=== PATIENT | female | born 1985 | race Caucasian/White ===

== ENCOUNTER 2019-03-30 13:29 | Outpatient (CLI) | payer MEDICAID, SELFPAY ==
[2019-03-30 13:51] VITALS: BMI 42.5
[2019-03-30 14:34] LABS: Fetal Fibronectin Negative
[2019-03-30 15:04] LABS: Group B Strep DNA By PCR Negative (Negative); Internal Control PASS; Probe Check PASS; Specimen Processing Control PASS
--- NOTE | 2019-03-30 15:39 | NURSING ---
Dr. Aponte contacted in office. Notified of category I strip. FFN negative. Contractions palpate mild and are irregular. Patient able to feel contractions but denies pain. Per Dr. Aponte patient may be discharged, states patient does not need a cervical exam to reassess for cervical change unless the patient requests and she will come after office hours to check patient for cervical change. Patient declines desire for cervical exam. Discharge instructions and education provided to patient.
--- NOTE | 2019-03-31 21:20 | OB.TRI.NOTE ---
History of Present Illness Date of Service: 03/30/19 Was patient seen by the physician?: No Reason For Visit: R/O PRE TERM LABOR Date of Service: 03/30/19 Final KHALIDA: 06/03/19 Gestational age: 30w 5 d Allergies No Known Allergies Allergy (Verified 03/30/19 13:55) Laboratory Studies: Laboratory Tests 03/30/19 03/30/19 Range/Units 12:45 12:45 Group B Strep DNA Negative (Negative) Fibronectin Negative Specimen Comment Not Reportable NST - FHR Rate Baby A Baseline: 135 Variability:: Moderate Accelerations:: 15 x 15 Decelerations:: None NST Reactive:: Yes FHR Category:: Category I Uterine Activity:: irritability Impression/Plan 33 YOF grand multip w/ threatened labor high risk multigravida advanced maternal age no cervical change d/c home, f/u as scheduled or as needed
== END 2019-03-30 15:30 | disposition home or self-care (01) ==
LOC: WPOUT 13:37 → OBT 13:38
PROVIDERS: Referring Provider Obstetrics & Gynecology; Visit Provider Obstetrics & Gynecology
DX: O47.03 False labor before 37 completed weeks of gestation, third trimester (principal); Z3A.34 34 weeks gestation of pregnancy
CPT/HCPCS: 59025; 59050; 82731; 87081; 87653; 99218; G0378

== ENCOUNTER 2019-05-04 09:00 | Inpatient (IN) | payer MEDICAID, SELFPAY ==
[2019-05-04 09:24] VITALS: BMI 43.2
[2019-05-04] MEDS: Lactated Ringers 1,000 ML 200 ML IV (09:30)
[2019-05-04] MEDS: Oxytocin 30 units/NS 500 ml 30 UNITS/500 ML IV.SOLN 334 UNITS IV (10:00)
--- NOTE | 2019-05-04 10:04 | PCM.HP.OB ---
- Problem List (1) Active labor Status: Acute (2) History of delivery Status: Acute (3) Late care Status: Acute (4) Family history of cystic fibrosis Status: Acute (5) Grand multipara in labor Status: Acute History Date of Admission: 05/04/19 Final KHALIDA: 06/03/19 Gestational age: 35 Weeks and 5 Days History of this : This is a 33 year-old, G [8], P [3316], at 35 weeks 5 days gestational age by LMP. Presented to labor and delivery at 8cm and in active labor with intact membranes. Contractions every 2 minutes and strong. Wanting unmedicated delivery. Allergies No Known Allergies Allergy (Verified 03/30/19 13:55) Home Medications: Home Medications Vits [Prenatabs FA] 1 tab PO DAILY 03/30/19 Smoking Status: Never smoker Alcohol: None Number of Fetus(es): 1 History Past Pregnancies: Past Pregnancies Delivery Date Name GA/ Weeks Outcome Route Wt Infant Sex Labor Length Anesthesia Delivery Location Provider FOB Labs: A positive, antibody screen negative HIV non reactive HBsAG negative Rubella Immune RPR negative GC/CT negative Urine tox screen negative GBS unknown Expected Infant Delivery Method: Spontaneous Vaginal Review of Systems Cardiovascular: Denies: Chest Pain Gastrointestinal: Reports: Abdominal Pain Genitourinary: Denies: Dysuria Psychiatric: Denies: Anxiety, Depression, Homicidal Ideations, Suicidal Ideations Physical Exam General: Alert, Oriented x3 HEENT: Atraumatic, Normocephalic Cardiovascular: Regular rate, Regular Rhythm Lungs: Clear to auscultation, Normal air movement, No rhonchi, No wheeze Abdomen: Gravid Estimated gestational size: Appropriate for gestational size Presentation: Cephalic Cervix Dilation (cm): 8 - IBOW. With patients consent AROM for large amount of clear fluild. Station: -1 Effacement (%): 90 Assessment/Plan All Active Problems Active labor (Acute) History of delivery (Acute) Late care (Acute) Family history of cystic fibrosis (Acute) Grand multipara in labor (Acute) This is a 33 year-old, G [8], P [3316], at 35 weeks 5 days gestational age. Active Labor Labor GBS unknown P: 1)Admit to labor and delivery 2)IV saline lock 3)Routine OB labs 4)Planning unmedicated 5) notified of patient in labor and collaborative physician.
--- NOTE | 2019-05-04 10:14 | PCM.OPRPT ---
Problem List (1) Active labor Status: Acute (2) History of delivery Status: Acute (3) Late care Status: Acute (4) Family history of cystic fibrosis Status: Acute (5) Grand multipara in labor Status: Acute (6) delivery Status: Acute Vaginal Delivery Maternal Presentation: Active Labor Amniotic Membrane Rupture Type: Artificial Amniotic Fluid Description: Clear Final KHALIDA: 06/03/19 Gestational age: 35 Weeks and 5 Days Date of Procedure: 05/04/19 Pre-Operative Diagnosis: Active labor Post-Operative Diagnosis: Surgery/ Procedure Performed: Spontaneous Vaginal Delivery Type of Anesthesia: None Description of Procedure: Presented to labor and delivery in active labor at 8cm dilated. Feeling urge to push with pushing efforts at 8cm. AROM for large amount of clear fluid. Frame Table Operator Helper called to room. After ROM patient with rapid delivery and spontaneous pushing efforts. of viable female infant over intact perineum. APGARS 7,9. Infant head delivered with shoulders forthcoming, placed on maternal abdomen. Mouth and nares suctioned for secretions. Stimulated and strong cry. Pitocin started after patient consent for active 3rd stage management. Cord clamped and cut after pulsations ceased by FOB. Placenta delivered spontaneously intact, 3 vessel cord. Perineum inspected and revealed intact perineum. Vaginal sweep completed, sponge and instrument count correct. Fundus firm and hemostasis achieved. EBL 200ml. Mom and baby stable. Planning to breastfeed. Family bonding well. notified of delivery. Presentation: Vertex Placental Delivery Description: Spontaneous Placenta Disposition: [facility] Cord Vessel Description: 3 Vessels Cord Entanglement: None Estimated Blood Loss: 200 ml A gender: Female (1 minute): 7 (5 minute): 9 Episiotomy Description: None Laceration: None Medications given after delivery: IV Pitocin
[2019-05-04 10:21] LABS: Absolute Lymphocyte Count 2.35 X10^3/uL (0.83-4.51); Absolute Neutrophil Count 8.2 X10^3/uL (2.0-7.7); Basophil# 0.03 X10^3/uL; Basophil% 0.3 % (0-1); Eosinophil# 0.08 X10^3/uL; Eosinophils% 0.7 % (0-5); Hematocrit 44.4 % (37-47); Hemoglobin 15.3 g/dL (12.0-15.0); Lymphocyte # 2.35 X10^3/ul (4.0); Lymphocyte % 20.8 % (19-41); Mean Corp Hgb Conc 34.5 g/dL (32-36); Mean Corpuscular Hgb 31.7 pg (27.0-32.0); Mean Corpuscular Volume 92.1 fL (81-99); Mean Platelet Vol. 11.9 fl (6.2-12.0); Monocyte# 0.58 X10^3/uL; Monocyte% 5.1 % (0-10); NRBC Flagged by Analyzer 0 % (0-5); Neutrophil % 72.7 % (47-70); Platelet Count 153 K/mm3 (150-450); RBC Distribution Width CV 13.5 % (11.6-14.6); RBC Distribution Width SD 45.2 fl (35.1-43.9); Red Blood Count 4.82 M/mm3 (4.2-5.4); White Blood Count 11.3 K/mm3 (4.4-11.0)
[2019-05-04 15:50] VITALS: BP 117/66; PULSE 86; RESP 16; TEMP 36.8
[2019-05-04 20:00] VITALS: BP 138/82; PULSE 85; RESP 18; TEMP 36.8
[2019-05-05 00:16] VITALS: BP 118/60; PULSE 89; RESP 18; TEMP 36.9
[2019-05-05 04:00] VITALS: BP 116/60; PULSE 77; RESP 18; TEMP 36.4
[2019-05-05 05:31] LABS: Hematocrit 40.8 % (37-47); Hemoglobin 13.8 g/dL (12.0-15.0); Mean Corp Hgb Conc 33.8 g/dL (32-36); Mean Corpuscular Hgb 31.5 pg (27.0-32.0); Mean Corpuscular Volume 93.2 fL (81-99); Mean Platelet Vol. 11.5 fl (6.2-12.0); Platelet Count 133 K/mm3 (150-450); RBC Distribution Width CV 13.5 % (11.6-14.6); RBC Distribution Width SD 45.2 fl (35.1-43.9); Red Blood Count 4.38 M/mm3 (4.2-5.4)
[2019-05-05 09:27] VITALS: BP 118/71; PULSE 66; RESP 18; TEMP 36.3
--- NOTE | 2019-05-05 11:51 | PN.OBGYN_ITS ---
Patient Problems: Active and Suspected Problems Active labor (Acute) History of delivery (Acute) Late care (Acute) Family history of cystic fibrosis (Acute) Grand multipara in labor (Acute) delivery (Acute) Subjective: Doing well per patient and nursing staff. Ambulating and taking PO without diff iculty. Voiding and passing flatus. Lochia normal. Pain controlled. . Planning D/C home tomorrow. - Physical Exam Vitals/I&O's: Vital Signs Temp Pulse Resp BP 97.3 F L 66 18 118/71 05/05/19 09:27 05/05/19 09:27 05/05/19 09:27 05/05/19 09:27 Oxygen Delivery Method Room Air Weight: 255 lb 15.307 oz Body Mass Index (BMI) 43.2 Intake and Output for Last 24 Hours 05/03/19 05/04/19 05/05/19 23:59 23:59 23:59 Intake Total 600 / 600 Output Total 450 / 450 Balance 150 / 150 General: Alert, Oriented x3, Cooperative HEENT: Atraumatic, Normocephalic Neck: Trachea Midline Lungs: Clear to auscultation, Normal air movement, No rhonchi, No wheeze Cardiovascular: Regular rate, Regular Rhythm, No murmurs Abdomen: Bowel Sounds Present - Fundus firm 3 below U, Soft Extremities: No edema Psych/Mental Status: Normal Affect, Appropriate Laboratory Results 05/05/19 05:18: WBC 9.0, RBC 4.38, Hgb 13.8, Hct 40.8, MCV 93.2, MCH 31.5, MCHC 33.8, RDW Std Deviation 45.2 H, RDW Coeff of Chanel 13.5, Plt Count 133 L, MPV 11.5 Current Medications Acetaminophen (Tylenol) 325 - 650 mg PO Q4H PRN PRN PRN Reason: Pain Score 1-3/10 Acetaminophen (Tylenol) 1,000 mg PO Q8H PRN PRN PRN Reason: Pain Score 1-3/10 Al Hydroxide/Mg Hydroxide (Mylanta Ii) 15 - 30 ml PO Q4H PRN PRN PRN Reason: INDIGESTION Bisacodyl (Dulcolax) 10 mg RECTAL UD PRN PRN Reason: If no BM Citric Acid/Sodium Citrate (Bicitra) 30 ml PO X1 PRN PRN Reason: Section Dibucaine (Dibucaine) 1 applic TOPICAL TID PRN PRN; Protocol PRN Reason: Discomfort Fentanyl Citrate (Sublimaze (100mcg Ampule)) 25 - 50 mcg IV Q2H PRN PRN PRN Reason: Pain Score 4-10/10 Hydrocortisone (Hytone) 1 applic TOPICAL TID PRN PRN; Protocol PRN Reason: Discomfort Lactated Ringer's () 500 mls @ 999 mls/hr IV .Q31M PRN PRN Reason: Epidural Lactated Ringer's () 500 mls @ 999 mls/hr IV .Q31M PRN PRN Reason: Corrective Measures Ibuprofen (Motrin) 600 mg PO Q6H PRN PRN PRN Reason: Pain Score 1-3/10 Methylergonovine Maleate (Methergine) 0.2 mg IM X1 PRN PRN Reason: Excess bleeding/uterine atony Ondansetron HCl (Zofran) 4 mg IV Q4H PRN PRN PRN Reason: NAUSEA Ondansetron HCl (Zofran) 4 mg IV Q4H PRN PRN PRN Reason: Nausea Prochlorperazine Edisylate (Compazine Iv) 10 mg IV Q6H PRN PRN PRN Reason: NAUSEA Senna/Docusate Sodium (Senokot-S, Renetta-Colace) 1 - 2 tablet PO DAILY PRN PRN PRN Reason: Constipation Simethicone (Mylicon) 80 mg PO PCHS PRN PRN Reason: Indigestion/Stomach pain Sodium Chloride () 10 - 40 ml IV X1 PRN PRN Reason: SALINE FLUSH Sodium Chloride () 5 - 15 ml IV UD PRN PRN Reason: SALINE FLUSH Medical Necessity - Tobacco Use Smoking Status: Never smoker Assessment/Plan All Active Problems Active labor (Acute) History of delivery (Acute) Late care (Acute) Family history of cystic fibrosis (Acute) Grand multipara in labor (Acute) delivery (Acute) A:PPD #1 P: 1) Routine and care 2) Pain controlled 3) Planning D/C home tomorrow 4) hgb stable.
[2019-05-05 14:51] VITALS: BP 129/74; PULSE 91; RESP 16; TEMP 36.2
[2019-05-05 20:15] VITALS: BP 140/81; PULSE 67; RESP 18; TEMP 36.3
[2019-05-06 03:00] VITALS: BP 113/65; PULSE 70; RESP 18; TEMP 36.2
[2019-05-06 08:01] VITALS: BP 121/75; PULSE 72; RESP 18; TEMP 36.1
--- NOTE | 2019-05-06 10:44 | PN.OBGYN_ITS ---
Patient Problems: Active and Suspected Problems Active labor (Acute) History of delivery (Acute) Late care (Acute) Family history of cystic fibrosis (Acute) Grand multipara in labor (Acute) delivery (Acute) Subjective: Doing well per patient and nursing staff. Ambulating and taking PO without diff iculty. Voiding and passing flatus. . Lochia normal. Pain controlled. Planning D/C home today. Baby with elevated bili levels and under lights. - Physical Exam Vitals/I&O's: Vital Signs Temp Pulse Resp BP 97.0 F L 72 18 121/75 H 05/06/19 08:01 05/06/19 08:01 05/06/19 08:01 05/06/19 08:01 Oxygen Delivery Method Room Air Weight: 255 lb 15.307 oz Body Mass Index (BMI) 43.2 Intake and Output for Last 24 Hours 05/04/19 05/05/19 05/06/19 23:59 23:59 23:59 Intake Total 600 / 600 Output Total 450 / 450 Balance 150 / 150 General: Alert, Oriented x3, Cooperative HEENT: Atraumatic, Normocephalic Neck: Trachea Midline Lungs: Clear to auscultation, Normal air movement, No rhonchi, No wheeze Cardiovascular: Regular rate, Regular Rhythm, No murmurs Abdomen: Bowel Sounds Present, Soft, Non Tender Extremities: No edema - Amaury's negative Neurological: Deep Tendon Reflexes 2+/4 and Symmetrical Psych/Mental Status: Normal Affect, Appropriate Current Medications Acetaminophen (Tylenol) 325 - 650 mg PO Q4H PRN PRN PRN Reason: Pain Score 1-3/10 Acetaminophen (Tylenol) 1,000 mg PO Q8H PRN PRN PRN Reason: Pain Score 1-3/10 Al Hydroxide/Mg Hydroxide (Mylanta Ii) 15 - 30 ml PO Q4H PRN PRN PRN Reason: INDIGESTION Bisacodyl (Dulcolax) 10 mg RECTAL UD PRN PRN Reason: If no BM Citric Acid/Sodium Citrate (Bicitra) 30 ml PO X1 PRN PRN Reason: Section Dibucaine (Dibucaine) 1 applic TOPICAL TID PRN PRN; Protocol PRN Reason: Discomfort Fentanyl Citrate (Sublimaze (100mcg Ampule)) 25 - 50 mcg IV Q2H PRN PRN PRN Reason: Pain Score 4-10/10 Hydrocortisone (Hytone) 1 applic TOPICAL TID PRN PRN; Protocol PRN Reason: Discomfort Lactated Ringer's () 500 mls @ 999 mls/hr IV .Q31M PRN PRN Reason: Epidural Lactated Ringer's () 500 mls @ 999 mls/hr IV .Q31M PRN PRN Reason: Corrective Measures Ibuprofen (Motrin) 600 mg PO Q6H PRN PRN PRN Reason: Pain Score 1-3/10 Methylergonovine Maleate (Methergine) 0.2 mg IM X1 PRN PRN Reason: Excess bleeding/uterine atony Ondansetron HCl (Zofran) 4 mg IV Q4H PRN PRN PRN Reason: NAUSEA Ondansetron HCl (Zofran) 4 mg IV Q4H PRN PRN PRN Reason: Nausea Prochlorperazine Edisylate (Compazine Iv) 10 mg IV Q6H PRN PRN PRN Reason: NAUSEA Senna/Docusate Sodium (Senokot-S, Renetta-Colace) 1 - 2 tablet PO DAILY PRN PRN PRN Reason: Constipation Simethicone (Mylicon) 80 mg PO PCHS PRN PRN Reason: Indigestion/Stomach pain Sodium Chloride () 10 - 40 ml IV X1 PRN PRN Reason: SALINE FLUSH Sodium Chloride () 5 - 15 ml IV UD PRN PRN Reason: SALINE FLUSH Medical Necessity - Tobacco Use Smoking Status: Never smoker Assessment/Plan All Active Problems Active labor (Acute) History of delivery (Acute) Late care (Acute) Family history of cystic fibrosis (Acute) Grand multipara in labor (Acute) delivery (Acute) A:PPD #2 Delivery P: 1) Routine and instructions 2) Few mild range BP, reviewed preeclampsia signs and when to call. Return in 2 days for blood pressure check. 3) visit in 2 weeks and 6 weeks 4) Discharge home today. If baby needing to stay for hyperbilirubinemia, patient will stay hotel status.
--- NOTE | 2019-05-06 10:51 | DCINST_ITS ---
Discharge Diet: No Restrictions Discharge Activity: Return to Normal Activity, May not drive while taking narcotic pain medications., May Shower, May Take a Tub Bath May resume sexual activity in: 4-6 weeks Weight Bearing Status: Full weight bearing Additional Activity Instructions:: Nothing in the vagina for 4-6 weeks. You may return to work/school in 6 weeks. Call your doctor if your incision/area has: Continuous Slow Oozing, Sudden Increased Bleeding, Increased Pain/ Swelling, Increased Redness, Foul Smelling Discharge Call your doctor if you observe: Fever of 101 or Higher, Inability to urinate, Inability to have a bowel movement, Using more than one pad per hour, Shortness of breath, Chest pain, Increased palpitations (irregular heartbeat), Calf discomfort, Uncontrolled pain Instructions: After a Vaginal Additional Instructions: If you experience any of the following, contact your healthcare provider. * Bleeding that soaks a pad every hour for 2 hours * Fever 100.4 or higher * Unrelieved incision or abdominal pain * Swelling, redness, discharge or bleeding from your incision or episiotomy site * Your incision begins to separate * Problems urinating (including inability to urinate or burning while urinating). * Visual changes * Severe headache * Flu-like symptoms * Pain or redness in one of both of your breasts * Pain, warmth, tenderness or swelling in your legs, especially the calf area * Frequent nausea and vomiting * Symptoms of depression or anxiety If you experience any of the following, call 911 or go to the nearest Emergency Room. * Chest pain * Problems breathing * Seizure activity * Partial or complete paralysis of a body part, slurred speech, weakness or d rooping of the face, or a sudden inability to walk or hold your balance Allergies/Adverse Reactions: Allergies No Known Allergies Allergy (Verified 03/30/19 13:55) Medications to take at Discharge Vits [Prenatabs FA ] 1 tab PO DAILY 03/30/19 Please Follow Up With: Paula Tao CNM When: Call to make an appointment with your doctor in 2 days for a blood pressure check. May return in 2 weeks and 6 weeks for visit. Primary Care Physician: Care Physician,No Primary [Primary Care Provider] - Test Results: Test results from this visit will be discussed in further detail at your follow- up appointment, if applicable.
[2019-05-06 13:24] VITALS: BP 121/74; PULSE 90; RESP 20; TEMP 36.4
[2019-05-06 18:30] VITALS: BP 132/81; PULSE 85; RESP 20; TEMP 36.4
--- NOTE | 2019-05-06 18:52 | NURSING ---
Nursing aware from shift engineer that pt. has prev. been Denominational and is now Mennonite, and family has shunned them. Pt. in room by herself through most of the day. Bili drawn at 1315, and nursing back to room to discuss bili level is higher than before at ~ 1435. Discussed that we will check bili level again around 1999, but that will more than likely be here overnight. FOB to room with other siblings as this news was given. Mother seemed to verbalize understanding, but FOB a little more resistant to info. Ped sent to room to discuss with family, and while Ped in room, FOB expressed concern over cost of gas coming to and from hospital. Pt. is from [place] [facility]. Ped reports FOB was open to this being discussed with SW. Nursing back to room to talk with pt. and FOB after talking with nursing script supervisor. Unable to do much in regards to transportation for today. SW in tomorrow and will discuss with pt. FOB very quiet in room. Pt. tearful, asking about leaving infant for the night so that she can go home. Asking about pumping and leaving breastmilk for infant to have through the night. Informed pt. that this is not usually how it goes when 's have to stay, and pt. is tearful, reporting that she is concerned over how her family at home is doing. FOB in room told pt Don't worry about us, we'll be ok. Pt. also tearful as she states that she wants to stay with infant as well and feels very torn about what to do. Offered to pt. to watch so that she could go outside and walk in the sunshine with her family. Pt. did not go outside. Remained in room with family until they left. Pt. agreeable to staying, reports she is just concerned over how things are at home. When back to pt's room and able to talk with her alone, she stated that Eryn had asked last night if she would want to talk with SW, and she reported no, but then when she talked with about it, they wished she would have said yes. Pt. reports they have left Denominational iman and have been shunned by all of their family. Reports they do not feel like they are fitting in in their new Mennonite zoroastrian. Reports her does not feel like he really has anyone to talk to, and that they are considering going back to [facility]. Pt. reports she came to hospital d/t she has insurance with this , and it is covered at hospital and paid better for that than to deliver at care center or at home with graduate engineer. Reports they have $30 in their bank account. Reports is laid off of his full-time job and is not working every day with his other job, and it appears that he may not get paid regularly or even when he is supposed to from the other job. Pt. reports that he is stopping by that employers' on the way home this evening to quill picking machine operator a check. Pt. very open, willing to talk. Appears overwhelmed. Tearful at times. Reported that she started to feel tearful last night. Reports this happens after some of her babies, unsure of how long it lasts.
== END 2019-05-06 18:30 | disposition home or self-care (01) | DRG 560 ==
PROVIDERS: Advanced Practice Midwife; Admitting Provider Obstetrics & Gynecology; Referring Provider Obstetrics & Gynecology; Visit Provider Obstetrics & Gynecology
DX: O60.14X0 Preterm labor third trimester with preterm delivery third trimester, not applicable or unspecified (principal); Z3A.35 35 weeks gestation of pregnancy; Z37.0 Single live birth
CPT/HCPCS: 59025; 59050; 85025; 85027; 86850; 86900; 86901; 99218; J7120; G0378

== ENCOUNTER 2022-09-07 04:06 | Observation (INO) | payer MEDICAID, SELFPAY ==
[2022-09-07] VITALS (16 sets, daily range): BP systolic 128–150; BP diastolic 61–90; PULSE 64–90; RESP 15–18; TEMP 35.6–36.9; O2SAT 94–100; BMI 42.7
[2022-09-07 04:31] LABS: Absolute Lymphocyte Count 1.25 X10^3/uL (0.83-4.51); Absolute Neutrophil Count 6.7 X10^3/uL (2.0-7.7); Basophil# 0.03 X10^3/uL; Basophil% 0.4 % (0-1); Eosinophil# 0.07 X10^3/uL; Eosinophils% 0.8 % (0-5); Hematocrit 44.3 % (37-47); Hemoglobin 14.8 g/dL (12.0-15.0); Lymphocyte # 1.25 X10^3/ul (0.83-4.51); Lymphocyte % 14.8 % (19-41); Mean Corp Hgb Conc 33.4 g/dL (32-36); Mean Corpuscular Hgb 30.5 pg (27.0-32.0); Mean Corpuscular Volume 91.2 fL (81-99); Mean Platelet Vol. 10.5 fl (6.2-12.0); Monocyte% 4.7 % (0-10); NRBC Flagged by Analyzer 0 % (0-5); Neutrophil # 6.68 X10^3/uL (2.7-7.7); Neutrophil % 79.1 % (47-70); Platelet Count 206 K/mm3 (150-450); RBC Distribution Width CV 13.3 % (11.6-14.6); RBC Distribution Width SD 44.1 fl (35.1-43.9); Red Blood Count 4.86 M/mm3 (4.2-5.4); White Blood Count 8.5 K/mm3 (4.4-11.0)
[2022-09-07 04:41] LABS: Internal QC Validated? YES +Cl - CLEAR BKGD; Pregnancy, Serum, hCG Quali. NEGATIVE Negative
[2022-09-07 04:47] LABS: ALB/GLOB Ratio 1.2 RATIO (0.9-2.4); AST(SGOT) 355 U/L (15-37); Alanine Aminotransfer ALT/SGPT 213 U/L (13-56); Albumin, Serum 3.7 g/dL (3.2-5.0); Alkaline Phosphatase 102 U/L (45-117); Anion Gap 4 (5-15); BUN 14 mg/dL (7-18); BUN/Creat Ratio 19.4 RATIO (10-20); Calcium,Total 8.8 mg/dL (8.5-10.1); Chloride 109 mmol/L (98-107); Creatinine, Serum 0.72 mg/dL (0.55-1.02); EST Glomerular Filtration Rate 96 mL/min (>60); Est Glom Filt Rate - Afr Amer 116 mL/min (>60); Estimated Creatinine Clearance 91.48 ml/min; Globulin 3.1 g/dL (2.2-4.2); Glucose 140 mg/dL (74-106); Lipase 101 U/L (13-75); Potassium 3.9 mmol/L (3.5-5.1); Protein, Total 6.8 g/dL (6.4-8.2); Sodium Level 139 mmol/L (136-145)
--- NOTE | 2022-09-07 05:06 | US_ITS ---
EXAM: US Abdomen RUQ (limited) HISTORY: RUQ pain TECHNIQUE: Right upper quadrant. COMPARISON: None. LIMITATIONS: None. FINDINGS: LIVER: 15.5 cm length. Increased echogenicity. More focal hypoechoic area centrally 5.1 x 2.7 x 4.7 cm likely fatty sparing. GALLBLADDER Size: Distended. Stones: Multiple. Wall thickness: Not thickened. 2 mm. Pericholecystic fluid: None. Sonographic Reid sign: Negative. EXTRAHEPATIC BILE DUCTS: Common bile duct 3 mm not dilated. PANCREAS: Visualized portions unremarkable. RIGHT KIDNEY: No hydronephrosis. ASCITES: None. US/Gallbladder IMPRESSION: Cholelithiasis. No evidence of acute cholecystitis. Fatty infiltration of liver with likely focal fatty sparing. Electronically Signed: Jaclyn Patel MD at 7:36 EDT ,
--- NOTE | 2022-09-07 05:06 | ED.VIS.GI ---
HPI HPI - GI History of Present Illness Chief Complaint: Abd Pain Informant: patient Narrative Narrative: Patient is a 37-year-old female with history of gallstones and biliary colic presenting with worsening right upper quadrant abdominal pain. Patient states yesterday afternoon she developed a bad attack of pain. She states last for 4 to 5 hours. She eventually was able to go to bed but then about 3 hours ago the pain increased again. She developed nausea and vomiting. She has not feels like her prior gallbladder pain. A couple years ago she was told her gallbladder to be removed but she wanted to try natural treatments. States at this point she cannot take it anymore and is ready to have her gallbladder come out. She denies any change in her bowel movements. She notes her menstrual cycle is 2 days late and does not know if she is or not. No other complaints at this time. PFSH PFSH Medical History no medical history Home Medications vits,calcium no.78-iron fumarate-folic acid 29 mg-1 mg tablet 1 tab PO DAILY Check with primary doctor 03/30/19 [History Last Taken 05/01/19 08:00 1] Allergy/AdvReac Type Severity Reaction Status Date / Time No Known Allergies Allergy Verified 09/07/22 04:12 Surgical History no surgical history Social History Smoking Status: Never smoker ROS ROS ED Constitutional Constitutional ED: Denies chills or fever(s) ENT ENT ED: Denies sore throat Cardiovascular Cardiovascular: Denies chest pain Respiratory/Chest Respiratory/Chest: Denies cough Gastrointestinal Gastrointestinal: Reports abdominal pain, nausea and vomiting Musculoskeletal Musculoskeletal: Denies arthralgias or myalgias Integumentary Denies rash Neurologic Neurologic: Denies headache(s) Hematologic/Lymphatic Hematologic/Lymphatic: Denies easy bleeding or easy bruising EXAM Physical Exam Const Vital Signs: 09/07/22 04:08 09/07/22 07:38 Temperature 96.1 F L Temperature Source Temporal Pulse Rate 79 79 Respiratory Rate 15 16 Blood Pressure 132/74 H 134/68 H Blood Pressure Mean 93 90 Pulse Ox 94 98 Oxygen Delivery Method Room Air Room Air Positive well nourished and well developed General Appearance ED: well developed and NAD HEENT Reports moist mucous membranes normocephalic and atraumatic Eyes PERRL and EOMs intact bilaterally General Eye ED: Negative for scleral icterus Neck supple Resp normal respiratory effort and clear to auscultation bilaterally Cardio regular rate, regular rhythm and no murmurs GI Palpation: soft and tender; Negative for guarding or rigid Back/Spine no CVA tenderness Extremity full ROM General Extremety ED: Negative for edema or tenderness General Extremity: Negative for edema Neuro moves all extremities Sensorium / Orientation: alert Psych mental status grossly normal and thought process normal MDM MDM MDM Narrative Medical decision making narrative: Patient is a 37-year-old female with known history of biliary colic and gallstones presenting after an episode of what sounds like biliary colic. Patient's vital signs are normal. Her pain is currently improved so she does not require any pain medicine at this time. Work-up included a CBC, CMP and lipase is obtained. Patient has an elevation of her bilirubin, AST, ALT and lipase concerning for an obstructive process/choledocholithiasis. Right upper quadrant ultrasound obtained does not show evidence of acute cholelithiasis, has a normal common bile duct but there is cholelithiasis. Surgical consult obtained and case is discussed with Dr. Sun. Patient is agreeable with admission for cholecystectomy. Patient is admitted to the surgical service. I do question if there could be a component of choledocholithiasis given her laboratory findings however imaging is not consistent with this. It is possible she could have passed a stone and that is what caused these changes as well. Patient states this is her fourth ER visit over the past 15 years for biliary colic. Lab Data Attestation: I reviewed the patient's lab results. Labs: Laboratory Results - last 24 hr 09/07/22 09/07/22 09/07/22 04:24 04:24 04:24 WBC 8.5 RBC 4.86 Hgb 14.8 Hct 44.3 MCV 91.2 MCH 30.5 MCHC 33.4 RDW Std Deviation 44.1 H RDW Coeff of Chanel 13.3 Plt Count 206 MPV 10.5 Immature Gran % (Auto) 0.200 Neut % (Auto) 79.1 H Lymph % (Auto) 14.8 L [place] % (Auto) 4.7 Eos % (Auto) 0.8 Baso % (Auto) 0.4 Absolute Neuts (auto) 6.7 Absolute Lymphs (auto) 1.25 Nucleated RBC % 0 Sodium 139 Potassium 3.9 Chloride 109 H Carbon Dioxide 26.0 Anion Gap 4 L BUN 14 Creatinine 0.72 Estim Creat Clear Calc 91.48 Est GFR (MDRD) Af Amer 116 Est GFR (MDRD) Non-Af 96 BUN/Creatinine Ratio 19.4 Glucose 140 H Calcium 8.8 Total Bilirubin 1.70 H AST 355 H ALT 213 H Alkaline Phosphatase 102 Total Protein 6.8 Albumin 3.7 Globulin 3.1 Albumin/Globulin Ratio 1.2 Lipase Serum , Qual NEGATIVE Urine Color Urine Clarity Urine pH Ur Specific [place] Urine Protein Urine Glucose (UA) Urine Ketones Urine Occult Blood Urine Nitrite Urine Bilirubin Urine Urobilinogen Ur Leukocyte Esterase Urine RBC Urine WBC Ur Squamous Epith Cells Urine Bacteria Urine Mucus 09/07/22 09/07/22 04:24 04:55 WBC RBC Hgb Hct MCV MCH MCHC RDW Std Deviation RDW Coeff of Chanel Plt Count MPV Immature Gran % (Auto) Neut % (Auto) Lymph % (Auto) [place] % (Auto) Eos % (Auto) Baso % (Auto) Absolute Neuts (auto) Absolute Lymphs (auto) Nucleated RBC % Sodium Potassium Chloride Carbon Dioxide Anion Gap BUN Creatinine Estim Creat Clear Calc Est GFR (MDRD) Af Amer Est GFR (MDRD) Non-Af BUN/Creatinine Ratio Glucose Calcium Total Bilirubin AST ALT Alkaline Phosphatase Total Protein Albumin Globulin Albumin/Globulin Ratio Lipase 101 H Serum , Qual Urine Color Yellow Urine Clarity Clear Urine pH 6.5 Ur Specific [place] 1.015 Urine Protein Negative Urine Glucose (UA) Normal Urine Ketones 5 H Urine Occult Blood Negative Urine Nitrite Negative Urine Bilirubin Negative Urine Urobilinogen Normal Ur Leukocyte Esterase Negative Urine RBC 0 SEEN Urine WBC 0 SEEN Ur Squamous Epith Cells 0-5 SEEN Urine Bacteria 1+ Urine Mucus 0 SEEN Radiography Diagnostic Testing: Clinical Impression(s) from Imaging Studies Gallbladder Ultrasound 09/07/22 05:06 IMPRESSION: Cholelithiasis. No evidence of acute cholecystitis. Fatty infiltration of liver with likely focal fatty sparing. Electronically Signed: Jaclyn Patel MD at 7:36 EDT , Discharge Plan Triage Chief Complaint: Abd Pain ED Provider: Bisi Franco Dx/Rx/DC Orders Clinical Impression: Symptomatic cholelithiasis, Transaminitis, Elevated lipase, Elevated bilirubin Prescriptions: No Action vit,[id number] 1 TABLET tablet 1 tab PO DAILY Primary Care Provider: Care Physician,No Primary Referrals: Care Physician,No Primary [Primary Care Provider] - Disposition Disposition: [facility]
[2022-09-07 05:07] LABS: Color, Urine Yellow (Yellow); Glucose, Dipstick Normal (Normal); Ketone-Dipstick 5 mg/dl (Negative); Leukocyte Esterase-Dipstick Negative /ul (Negative); Mucous, Urine 0 SEEN /hpf (<or=2+); Nitrite-Dipstick Negative (Negative); Occult Blood-Urine Negative /ul (Negative); Protein-Dipstick Negative (Negative); Red Blood Cells-Urine 0 SEEN /hpf (0-5); Specific Gravity, Urine 1.015 (1.002-1.030); Urine Bilirubin Dipstick Negative (Negative); Urine Clarity Clear (Clear); Urine Urobilinogen Normal (Normal); Urine pH 6.5 (5.0 - 8.0); White Blood Cells 0 SEEN /hpf (0-5)
[2022-09-07 05:15] LABS: Bacteria 1+ /hpf (None Seen); Squamous Epithelial Cells - UA 0-5 SEEN /hpf (5-10)
--- NOTE | 2022-09-07 08:41 | NURSING ---
MED SURG OBS JACI SYMPTOMATIC CHOLELITHIASIS
--- NOTE | 2022-09-07 08:46 | PCM.HP.STD ---
HPI - General General Date of Admission: 09/07/22 Chief Complaint: Acute onset abdominal pain with associated N/V HPI Narrative LLOYD SHANNON, is a 37 F who presents to [facility] with complaints of acute onset right upper quadrant abdominal pain with associated nausea and vomiting. Patient states that the symptoms started yesterday afternoon, gradually subsided and became tolerable so that she could fall asleep, but then woke her out of sleep at approximately 2 AM. She states that there was some associated flushing and chills as well. She notes this is not her first experience with the symptoms and reports approximately 10 prior episodes starting approximately 14 years ago with her first of 7 children. When asked about food triggers, she states she believes that lettuce is a trigger. She also notes that she has had prior ER visits for these similar episodes. She estimates this is her fourth such emergency room evaluation. She reports that she also had a brief inpatient admission on the account of a gallstone which they believed was stuck (choledocholithiasis?), but then demonstrated evidence of spontaneous passage so she was allowed to go home. She states that she attempted to use natural means to dissolve her gallstones, but apparently this was unsuccessful. Patient has no formal diagnoses and does not take any medications. She has never undergone surgery and reports that her 7 child births were all through vaginal delivery. [facility] Medical History no medical history Home Medications vits,calcium no.78-iron fumarate-folic acid 29 mg-1 mg tablet 1 tab PO DAILY Check with primary doctor 03/30/19 [History Last Taken 05/01/19 08:00 1] Allergy/AdvReac Type Severity Reaction Status Date / Time No Known Allergies Allergy Verified 09/07/22 04:12 Surgical History no surgical history Social History Smoking Status: Never smoker ROS Constitutional Constitutional: Reports chills Gastrointestinal Gastrointestinal: Reports abdominal pain, nausea and vomiting Vital Signs Vital Signs Vital Signs: 09/07/22 04:08 09/07/22 07:38 Temperature 96.1 F L Temperature Source Temporal Pulse Rate 79 79 Respiratory Rate 15 16 Blood Pressure 132/74 H 134/68 H Blood Pressure Mean 93 90 Pulse Ox 94 98 Oxygen Delivery Method Room Air Room Air Weight Weight: 249 lb 1.957 oz Body Mass Index (BMI) 42.7 Physical Exam Const alert, no apparent distress and well nourished General Appearance: cooperative Resp normal respiratory effort GI GI Narrative: Morbidly obese female with abdominal striae. No visible scars. No visible herniation. Nondistended. Soft and largely nontender to palpation aside from mild tenderness in right upper quadrant. This does not amount to a positive Reid sign. Results Lab / Micro Data Result Diagrams: 09/07/22 04:24 09/07/22 04:24 Labs: Laboratory Results - last 24 hr 09/07/22 04:24: WBC 8.5, RBC 4.86, Hgb 14.8, Hct 44.3, MCV 91.2, MCH 30.5, MCHC 33.4, RDW Std Deviation 44.1 H, RDW Coeff of Chanel 13.3, Plt Count 206, MPV 10.5, Immature Gran % (Auto) 0.200, Neut % (Auto) 79.1 H, Lymph % (Auto) 14.8 L, [place] % (Auto) 4.7, Eos % (Auto) 0.8, Baso % (Auto) 0.4, Absolute Neuts (auto) 6.7, Absolute Lymphs (auto) 1.25, Nucleated RBC % 0 09/07/22 04:24: Sodium 139, Potassium 3.9, Chloride 109 H, Carbon Dioxide 26.0, Anion Gap 4 L, BUN 14, Creatinine 0.72, Estim Creat Clear Calc 91.48, Est GFR (MDRD) Af Amer 116, Est GFR (MDRD) Non-Af 96, BUN/Creatinine Ratio 19.4, Glucose 140 H, Calcium 8.8, Total Bilirubin 1.70 H, AST 355 H, ALT 213 H, Alkaline Phosphatase 102, Total Protein 6.8, Albumin 3.7, Globulin 3.1, Albumin/Globulin Ratio 1.2 09/07/22 04:24: Serum , Qual NEGATIVE 09/07/22 04:24: Lipase 101 H 09/07/22 04:55: Urine Color Yellow, Urine Clarity Clear, Urine pH 6.5, Ur Specific [place] 1.015, Urine Protein Negative, Urine Glucose (UA) Normal, Urine Ketones 5 H, Urine Occult Blood Negative, Urine Nitrite Negative, Urine Bilirubin Negative, Urine Urobilinogen Normal, Ur Leukocyte Esterase Negative, Urine RBC 0 SEEN, Urine WBC 0 SEEN, Ur Squamous Epith Cells 0-5 SEEN, Urine Bacteria 1+, Urine Mucus 0 SEEN Radiology Impression Gallbladder Ultrasound 09/07/22 05:06 IMPRESSION: Cholelithiasis. No evidence of acute cholecystitis. Fatty infiltration of liver with likely focal fatty sparing. Electronically Signed: Jaclyn Patel MD at 7:36 EDT , Assessment & Plan Assessment/Plan (1) Symptomatic cholelithiasis: PLAN: This is a 37-year-old female with an extensive history of biliary colic who presents following development of acute onset right upper quadrant abdominal discomfort yesterday and early this morning. Based on patient's description this is a classic presentation of further biliary colic. ER work-up was notable for CBC without leukocytosis but positive left shift. CMP demonstrated evidence of transaminitis with hyperbilirubinemia and mildly elevated lipase level. Right upper quadrant ultrasound confirmed the presence of cholelithiasis without additional signs of cholecystitis. On exam patient has largely had resolution of her discomfort. This still in the above presentation I suspect patient likely had spontaneous passage of a gallstone as she is experienced previously. Still, given this is her fourth visit to the emergency department I believe she is at exceptionally high risk for recurrence and cannot fully exclude possibility of retained stone given her currently elevated labs. Therefore, I have recommended proceeding to the operating room for laparoscopic cholecystectomy with intraoperative cholangiogram. Patient states that she told herself she is ready to have her gallbladder removed and wishes to go through with that today so she accepts the recommendation. The procedure was described in detail including use of cholangiography to ensure bile passage into the small bowel. Patient expresses understanding of this discussion and denies any further questions. ? Admit to observation ? Proceed to the operating room later today for laparoscopic cholecystectomy with intraoperative cholangiogram (consent to be obtained by nursing) ? Patient should be kept n.p.o. with IV fluids in anticipation of surgery ? Well begin continuous Zosyn on the account of possible retained stone until cholangiogram (2) Biliary colic symptom: (3) Transaminitis: (4) Elevated bilirubin: (5) Elevated lipase: Charges/Coding Visit Charges Inpatient E&M: 98357 Init Hosp L2
--- NOTE | 2022-09-07 09:06 | RAD_ITS ---
STUDY: INTRAOPERATIVE GLANDULAR. REASON FOR EXAM: Female, 37 years old. LAP PARI, ABD PAIN FLUOROSCOPY TIME (if supplied): ( 24 seconds ) minutes/seconds. 18.6 mGy TECHNIQUE: An intraoperative cholangiogram was performed by the surgeon. Imaging was performed. COMPARISON: None. FINDINGS: The visualized intra and extrahepatic biliary ducts are unremarkable. Contrast was injected into the duodenum. No intraluminal filling defect is seen. RAD/Cholangiogram/ O R,Initial IMPRESSION: Unremarkable intraoperative Cholangiogram. Electronically Signed: Leighton Ortiz MD at 13:39 EDT ,
--- NOTE | 2022-09-07 09:41 | EKG12_ITS ---
Test Reason : PRE OP Blood Pressure : / mmHG Vent. Rate : 064 BPM Atrial Rate : 064 BPM P-R Int : 156 ms QRS Dur : 110 ms QT Int : 408 ms P-R-T Axes : 039 068 019 degrees QTc Int : 420 ms Normal sinus rhythm Normal ECG No previous ECGs available Confirmed by VIVIANE DALAL, MIMI ([id number]), movie editor LUCAS AMADOR ([id number]) on 09/10/2022 8:16:41 AM Referred By: Confirmed By:MIMI PAN MD
--- NOTE | 2022-09-07 11:00 | GALL_PTH ---
PATIENT: LLOYD SHANNON LOC: MS3 U#:[id number] AGE/SX: 37/F ROOM: [facility] [place] RE09/07/[address]: Dr. Blas Sun MD : 1985 BED: 1 DIS: 09/08/2022 SPEC #: [id number] RECD: 09/07/22 15:23 STATUS: LUIS M EDGE #: [id number] DAMIEN: 09/07/22 11:[address]: Blas Sun DEPT: SURGICAL PATHOLOGY RECD BY: Alma Underwood ENTERED: 09/08/22 08:45 SP TYPE: RADHA JACKSON DR: No Primary Care Phys Tissues: Gallbladder, NOS Procedures: Surgery Specimen Level III HEADER OPERATION: Laparoscopic cholecystectomy with IOC PRE-OP DIAGNOSIS: Cholelithiasis TISSUE SUBMITTED: Gallbladder MICROSCOPIC DIAGNOSIS Gallbladder, cholecystectomy: Chronic cholecystitis and cholelithiasis. SJ:ayesha 09/09/2022 MICROSCOPIC DESCRIPTION Slides are reviewed. GROSS DESCRIPTION Received is one container labeled with the patient's name and designated gallbladder. The specimen consists of a gallbladder measuring 9.0 cm in length and up to 3.0 cm in diameter. The external surface is pink-sibley, smooth and glistening for the most part. Focally it is granular, hemorrhagic and contains cautery artifact. The gallbladder contains a small amount of green-yellow mucoid bile and distended with multiple yellowish-orange, multifaceted stones measuring in aggregate 5.5 x 5.5 x 2.0 cm and 0.3 to 0.5 cm in greatest dimension. The mucosa is bile-stained and without any mass lesions. The gallbladder wall measures up to 0.2 cm in thickness. Pipe Coremaker sections from the gallbladder and the cystic duct are submitted in one cassette. / SJ:ayesha 09/08/2022 TC:3 CPT: 70300
[2022-09-07] MEDS: Bupivacaine Mpf 0.5% 30 ML VIAL (12:00)
--- NOTE | 2022-09-07 12:38 | PCM.OPRPT ---
Report of Operation Date of Procedure: 09/07/22 Pre-Operative Diagnosis: 1. Symptomatic cholelithiasis 2. Transaminitis and hyperbilirubinemia Post-Operative Diagnosis: 1. Cholecystitis 2. Transaminitis and hyperbilirubinemia Surgery/Procedure Performed:: Laparoscopic cholecystectomy with intraoperative cholangiogram Description of Surgical Findings:: ? Normal biliary anatomy with normal cholangiography ? Single anterior cystic artery Surgeon: Blas Sun warrant clerk: Deysi Thomas Type of Anesthesia: General/Supplemental Anesthesiologist: Evaristo Medellin Specimen's removed: Gallbladder Drains: None Estimated Blood Loss (mL): 25 Description of Procedure: After proper identification in the preoperative holding area the patient was brought to the operating room where she was positioned supine on the operating room table. Preoperatively SCDs were placed and antibiotics were administered. General anesthesia was then induced. Patient's abdomen was prepped and draped in usual sterile fashion. A formal timeout was conducted to confirm both patient and the procedure. Procedure was begun with a supraumbilical incision which was extended deeply down to the level of the fascia. The fascia was elevated and incised, as well as the peritoneum. A finger sweep was performed to ensure there were no underlying adhesions and a 12 mm balloon trocar was inserted. Pneumoperitoneum was established at 15 mmHg. 3 additional trocars were placed in the epigastrium and in the right upper quadrant (3 x 5 mm). Inspection of the peritoneum revealed no inadvertent injury to the viscera below. The gallbladder was visualized with mild inflammation. The gallbladder fundus was then grasped and elevated cephalad. Then, using careful dissection the peritoneum was opened and the structures of the hepatocystic triangle were delineated. Once the critical view of safety was obtained, the cystic duct was singly clipped and partially divided with a ductotomy. The proximal duct was milked of any debris until there was backflow of bile. Using an Samayoa Yemi clamp, a cholangiocatheter was fed into the proximal segment of the cystic duct and clamped into place. Under fluoroscopy a cholangiogram was then obtained showing a standard length cystic duct flowing into a common bile duct with unobstructed antegrade flow of contrast into the duodenum. There was also retrograde flow through the common hepatic duct into the right and left hepatic ducts. Satisfied with this result, the cholangiocatheter was withdrawn and the proximal cystic duct was sealed with clips and the cystic duct was completely transected. The same process was used for the cystic artery. The gallbladder was then removed from the gallbladder fossa with the use of electrocautery. Selective electrocautery was used to obtain hemostasis in the gallbladder fossa. The gallbladder was placed in an Endo Catch bag and removed from the peritoneum. Morison's pouch was irrigated and the effluent was suctioned free of the peritoneum. Hemostasis was again confirmed. The fascia of the 12 mm supraumbilical port site was closed under laparoscopic visualization using a Alexey Guan suture passer and #1 PDS in a [id number] fashion. Still persisted a small gap between these 2 sutures so a third interrupted PDS suture was placed. This provided good closure of the fascia. Pneumoperitoneum was evacuated and the sutures on the fascia of the 12 mm port site were tied. A total of 30 mL of anesthetic was injected at the port sites for postoperative pain control. The skin of each port site was then closed in subcuticular fashion using 4-0 Monocryl. Steri-Strips and bandages were applied as dressings. Patient tolerated the procedure well without any apparent complications. On emergence from their anesthetic the patient was taken to PACU for ongoing recovery. Grafts/Implants Used: None Complications None Admit VTE Documentation VTE Mechan Device Prophylaxis: SCD's Procedures Digestive 40xxx-49xxx: 27677 Laparo cholecystectomy/graph
[2022-09-07] MEDS: oxyCODONE 5 MG Tablet PO (17:00)
[2022-09-07] MEDS: Ibuprofen 400 MG Tablet PO ×2 (17:00→23:08)
--- NOTE | 2022-09-07 17:27 | DCINST_ITS ---
Discharge Instructions Diet Discharge Diet: No restrictions Activity Discharge Activity: May Not Drive (May not drive while taking narcotic pain medications) and May Shower (May begin showering 48hours postop. Please avoid baths or submerging surgical incisions before skin is completely healed.) May shower in (days): 2 May resume sexual activity in: 2 weeks Ice area for (Minutes): 20 Lifting Restrictions: Limit lifting to <15lbs for 2 weeks following surgery Dressing / Incision Call your doctor if your incision/area has: Sudden Increased Bleeding, Increased Pain/ Swelling, Increased Redness, Foul Smelling Discharge and Swelling at the incision site Call your doctor if you observe: Fever of 101 or Higher, Inability to urinate, Inability to have a bowel movement and Uncontrolled pain Suture Line Care: Avoid Pulling/Pushing Remove Dressing in: 2 days (Please leave steri strips (medical tape) in place until they fall off spontaneously or are removed at your follow-up appointment) Cleanse incision/area with: Keep Dressing Clean & Dry Follow Up Care Please Follow Up With: Blas Sun MD When: 2 weeks postop Test Results: Test results from this visit will be discussed in further detail at your follow- up appointment, if applicable. Discharge Plan Admission Admit Date/Time: 09/07/22 09:42 Primary Reason for Your Visit: Gallbladder surgery Attending Provider: Blas Sun Primary Care Provider: Care Physician,Kirstin Primary Instructions Additional Instructions / Restrictions: Please alternate Tylenol and ibuprofen per label and then use oxycodone for breakthrough discomfort. Discharge Orders/Prescriptions Prescriptions: New oxycodone-acetaminophen [Percocet] 5-325 mg tablet 1 tab PO Q6H PRN (Reason: pain) 3 Days Qty: 10 0RF Rx Instructions: Please avoid overuse of acetaminophen Continued vit,[id number] 1 TABLET tablet 1 tab PO DAILY Referrals / Follow Up: Care Physician,No Primary [Primary Care Provider] - Disposition Disposition (needs filled in before D/C Order can be placed): Home, Self Care
--- NOTE | 2022-09-07 17:45 | DS.PCM_ITS ---
Providers Date of Admission: 09/07/22 Primary Care Physician: No Primary Care Phys Reason For Visit: SYMPTOMATIC CHOLELITHIASIS Diagnosis Discharge Diagnosis (1) Symptomatic cholelithiasis: Status: Acute Code(s): K80.20 - Calculus of gallbladder without cholecystitis without obstruction Plan: This is a 37-year-old female with an extensive history of biliary colic who presents following development of acute onset right upper quadrant abdominal discomfort yesterday and early this morning. Based on patient's description this is a classic presentation of further biliary colic. ER work-up was notable for CBC without leukocytosis but positive left shift. CMP demonstrated evidence of transaminitis with hyperbilirubinemia and mildly elevated lipase level. Right upper quadrant ultrasound confirmed the presence of cholelithiasis without additional signs of cholecystitis. On exam patient has largely had resolution of her discomfort. This still in the above presentation I suspect patient likely had spontaneous passage of a gallstone as she is experienced previously. Still, given this is her fourth visit to the emergency department I believe she is at exceptionally high risk for recurrence and cannot fully exclude possibility of retained stone given her currently elevated labs. Therefore, I have recommended proceeding to the operating room for laparoscopic cholecystectomy with intraoperative cholangiogram. Patient states that she told herself she is ready to have her gallbladder removed and wishes to go through with that today so she accepts the recommendation. The procedure was described in detail including use of cholangiography to ensure bile passage into the small bowel. Patient expresses understanding of this discussion and denies any further questions. ? Admit to observation ? Proceed to the operating room later today for laparoscopic cholecystectomy with intraoperative cholangiogram (consent to be obtained by nursing) ? Patient should be kept n.p.o. with IV fluids in anticipation of surgery ? Well begin continuous Zosyn on the account of possible retained stone until cholangiogram (2) Biliary colic symptom: Status: Acute Code(s): K80.50 - Calculus of bile duct without cholangitis or cholecystitis without obstruction (3) Transaminitis: Status: Acute Code(s): R74.01 - Elevation of levels of liver transaminase levels (4) Elevated bilirubin: Status: Acute Code(s): R17 - Unspecified jaundice (5) Elevated lipase: Status: Acute Code(s): R74.8 - Abnormal levels of other serum enzymes Medications at Discharge Home Medications vits,calcium no.78-iron fumarate-folic acid 29 mg-1 mg tablet 1 tab PO DAILY Check with primary doctor 03/30/19 oxycodone-acetaminophen 5 mg-325 mg tablet (Percocet) 1 tab PO Q6H PRN pain 3 days #10 tabs 09/07/22 Hospital Course Operations cholecystecomy (09/07/2022) Summary of Care Provided Minutes Spent on Discharge: 10 Hospital Course: This is a 37-year-old female who is admitted via [facility] emergency department on 09/07/2022 after a presentation for biliary colic and work-up showed evidence of cholelithiasis with concurrent mild transaminitis, hyperbilirubinemia, mildly elevated lipase. Given that patient reported this was now her fourth visit for such complaints and her work-up findings I recommended we proceed for laparoscopic cholecystectomy and intraoperative cholangiogram. Patient accepted this recommendation and this procedure was undertaken in uncomplicated fashion the same day. Patient was admitted to the floor postoperatively to assess for p.o. tolerance and pain control. Patient remained very drowsy the evening of postoperative day 0 so her discharge was held until postoperative day 1. This morning, patient is much more alert, tolerating regular diet, and denies any significant postoperative discomfort. She requests discharge to home, and with this significant clinical improvement request is granted. I did review postoperative expectations and requested follow-up at 2 weeks as an outpatient to review healing. Patient denied any further questions and her discharge was signed. Physical Exam Const alert, oriented x3, no apparent distress and well nourished General Appearance: cooperative Resp normal respiratory effort GI GI Narrative: Operative dressings remain intact with minimal drainage to these bandages. Patient's abdomen remains nondistended. Patient denies tenderness with palpation. Weight / BMI Weight Weight: 249 lb 1.957 oz Body Mass Index (BMI) 42.7 ABG / Lab / Microbiology Data Result Diagrams: 09/07/22 04:24 09/07/22 04:24 Laboratory: Laboratory Results - last 24 hr 09/07/22 04:24: WBC 8.5, RBC 4.86, Hgb 14.8, Hct 44.3, MCV 91.2, MCH 30.5, MCHC 33.4, RDW Std Deviation 44.1 H, RDW Coeff of [place]el 13.3, Plt Count 206, MPV 10.5, Immature Gran % (Auto) 0.200, Neut % (Auto) 79.1 H, Lymph % (Auto) 14.8 L, [place] % (Auto) 4.7, Eos % (Auto) 0.8, Baso % (Auto) 0.4, Absolute Neuts (auto) 6.7, Absolute Lymphs (auto) 1.25, Nucleated RBC % 0 09/07/22 04:24: Sodium 139, Potassium 3.9, Chloride 109 H, Carbon Dioxide 26.0, Anion Gap 4 L, BUN 14, Creatinine 0.72, Estim Creat Clear Calc 91.48, Est GFR (MDRD) Af Amer 116, Est GFR (MDRD) Non-Af 96, BUN/Creatinine Ratio 19.4, Glucose 140 H, Calcium 8.8, Total Bilirubin 1.70 H, AST 355 H, ALT 213 H, Alkaline Phosphatase 102, Total Protein 6.8, Albumin 3.7, Globulin 3.1, Albumin/Globulin Ratio 1.2 09/07/22 04:24: Serum , Qual NEGATIVE 09/07/22 04:24: Lipase 101 H 09/07/22 04:55: Urine Color Yellow, Urine Clarity Clear, Urine pH 6.5, Ur Specific [place] 1.015, Urine Protein Negative, Urine Glucose (UA) Normal, Urine Ketones 5 H, Urine Occult Blood Negative, Urine Nitrite Negative, Urine Bilirubin Negative, Urine Urobilinogen Normal, Ur Leukocyte Esterase Negative, Urine RBC 0 SEEN, Urine WBC 0 SEEN, Ur Squamous Epith Cells 0-5 SEEN, Urine Bacteria 1+, Urine Mucus 0 SEEN Radiography Diagnostic Testing: Radiology Impression Gallbladder Ultrasound 09/07/22 05:06 IMPRESSION: Cholelithiasis. No evidence of acute cholecystitis. Fatty infiltration of liver with likely focal fatty sparing. Electronically Signed: Jaclyn Patel MD at 7:36 EDT , D/C Instructions Discharge Diet: No restrictions May shower in (days): 2 May resume sexual activity in: 2 weeks Ice area for (Minutes): 20 Call your doctor if your incision/area has: Sudden Increased Bleeding, Increased Pain/ Swelling, Increased Redness, Foul Smelling Discharge and Swelling at the incision site Call your doctor if you observe: Fever of 101 or Higher, Inability to urinate, Inability to have a bowel movement and Uncontrolled pain Suture Line Care: Avoid Pulling/Pushing Cleanse incision/area with: Keep Dressing Clean & Dry Please Follow Up With: Blas Sun MD When: 2 weeks postop Meaningful Use Info Meaningful Use Diagnoses (Choose all that apply): None applicable Discharge Plan Admission Admit Date/Time: 09/07/22 09:42 Primary Reason for Your Visit: Gallbladder surgery Attending Provider: Blas Sun Primary Care Provider: Care Physician,Kirstin Primary Instructions Additional Instructions / Restrictions: Please alternate Tylenol and ibuprofen per label and then use oxycodone for breakthrough discomfort. Discharge Orders/Prescriptions Prescriptions: New oxycodone-acetaminophen [Percocet] 5-325 mg tablet 1 tab PO Q6H PRN (Reason: pain) 3 Days Qty: 10 0RF Rx Instructions: Please avoid overuse of acetaminophen Continued vit,[id number] 1 TABLET tablet 1 tab PO DAILY Referrals / Follow Up: Care Physician,No Primary [Primary Care Provider] - Disposition Disposition (needs filled in before D/C Order can be placed): Home, Self Care
[2022-09-07] MEDS: 0.9% Normal Saline 1,000 ML 50 ML IV (23:08)
[2022-09-08 02:30] VITALS: BP 119/70; PULSE 71; RESP 18; TEMP 37.3; O2SAT 95
[2022-09-08] MEDS: Ibuprofen 400 MG Tablet PO (06:10)
[2022-09-08 08:19] VITALS: BP 113/74; PULSE 59; RESP 18; TEMP 36.4; O2SAT 95
--- NOTE | 2022-09-08 10:27 | PHA.DC.MC ---
Pharmacy Service has performed discharge medication reconciliation and counseling for this patient. 1. OXYCODONE/ACETAMINOPHEN 5/325MG 1T PO Q6H PRN PAIN The patient's discharge medication list was reviewed for discrepancies and discrepancies were resolved. Home Medications vits,calcium no.78-iron fumarate-folic acid 29 mg-1 mg tablet 1 tab PO DAILY Check with primary doctor 03/30/19 oxycodone-acetaminophen 5 mg-325 mg tablet (Percocet) 1 tab PO Q6H PRN pain 3 days #10 tabs 09/07/22 The patient was counseled on the following discharge medications and changes in medications for homegoing were reviewed. The Reason for Use, instructions for use, and potential side effects were reviewed for all new medications. The patient's questions regarding all of their medications were answered. The patient was able to verbally demonstrate an understanding of their discharge medications. Patient counseled by pharmacy order entry technicianSiddharth.
== END 2022-09-08 12:59 | disposition home or self-care (01) ==
LOC: ED 08:57 → MS3 09:57
PROVIDERS: Admitting Provider Surgery; Emergency Provider Emergency Medicine; Visit Provider Surgery
PROC: (CPT 47610; principal; 2022-09-07 10:40)
DX: K80.10 Calculus of gallbladder with chronic cholecystitis without obstruction (principal)
CPT/HCPCS: 47563; 00790; 74300; 76000; 76705; 80053; 81001; 83690; 84703; 85025; 88304; 93005; 96365; 96366; 99221; 99284; J7030; J7120; A4216; G0378; J2405